=== PATIENT | female | born 1950 | race Caucasian/White ===

== ENCOUNTER 2019-04-06 06:27 | Day surgery (SDC) | payer MEDICARE, BC ==
[2019-04-06] MEDS ORDERED: Lactated Ringers 1,000 ML IV SCH (07:00)
[2019-04-06] MEDS ORDERED: fentaNYL 100 MCG/2 ML SDV ONE (07:20)
[2019-04-06] MEDS ORDERED: Propofol 200 MG/20 ML SDV ONE (07:20)
--- NOTE | 2019-04-06 10:18 | OR ---
PREOPERATIVE DIAGNOSIS: History of colon polyps. PROCEDURE PERFORMED: Total flexible colonoscopy. ANESTHESIA: MAC anesthesia. COMPLICATIONS: None. FINDINGS: Normal colonoscopic exam. INDICATION FOR PROCEDURE: Ms. Martinez is a 68-year-old female who is currently asymptomatic and is here for a repeat colonoscopy for followup of colon polyps. She had her last colonoscopy 5 years ago at which point she had some adenomatous polyps. She has never had personal or family history of colorectal cancer. DETAILS OF PROCEDURE: After informed consent was obtained, the patient was brought to the procedure room, placed in left lateral decubitus on the table. MAC anesthesia was induced by Anesthesia colleagues. Began with digital rectal exam which revealed a short anal canal, but no abnormalities. An Endocuff device was utilized and the colonoscope was entered and was placed into the rectum and advanced to the cecum. The appendiceal orifice and terminal ileal mucosa were photographed. The colonoscope was then slowly withdrawn and no abnormalities were noted. A retroflexed view showed mild internal hemorrhoids. Start time 07:34, cecum time 07:44, end time 07:57. I recommended repeat colonoscopy in 5 years. RKM: 04/06/2019 08:47:15 MODL: 04/06/2019 09:53:51 /[id number]
== END 2019-04-06 09:41 | disposition home or self-care (01) ==
LOC: VM.SDS 06:27
PROVIDERS: ATTEND Student in an Organized Health Care Education/Training Program
DX: Z12.11 Encounter for screening for malignant neoplasm of colon (principal); I10 Essential (primary) hypertension; M19.90 Unspecified osteoarthritis, unspecified site; E78.00 Pure hypercholesterolemia, unspecified; Z86.010 Personal history of colon polyps
CPT/HCPCS: 00811; G0105; J2704; J3010; J7120